=== PATIENT | female | born 1975 | race Caucasian/White ===

== ENCOUNTER 2020-09-04 11:13 | Outpatient (NON) | payer OTHER, SELFPAY ==
[2020-09-05 00:44] LABS: SARS-CoV-2 RNA PCR Negative
== END 2020-09-04 11:14 ==
LOC: ANHCOVIDDT 11:17
PROVIDERS: PCP Physician Assistant; Visit Provider Physician Assistant
DX: R50.9 Fever, unspecified (principal); Z20.828 Contact with and (suspected) exposure to other viral communicable diseases
CPT/HCPCS: 87635; C9803; U0003

== ENCOUNTER 2022-06-23 02:27 | Day surgery (SDC) | payer OTHER, SELFPAY ==
--- NOTE | 2022-03-09 08:21 | SUR.PREOP ---
Patient called today to discuss her prep for her upcoming procedure. Voicemail left and asked that she return call to me or the Dr. Johnson's Office.
--- NOTE | 2022-03-14 08:55 | SUR.PREOP ---
[id number] called Ann-Marie regarding her prep for her upcoming procedure. Message left to return call.
[2022-06-19 16:18] VITALS: BMI 33.5
[2022-06-23 10:30] VITALS: BP 123/76; PULSE 84; RESP 16; TEMP 36.6; O2SAT 100
[2022-06-23] MEDS: LACTATED RINGERS 1,000 ML 150 ML IV CONT (10:40)
[2022-06-23] MEDS: ONDANSETRON INJ 4 MG/2 ML VIAL IV PUSH (10:52)
--- NOTE | 2022-06-23 11:01 | WPDANESEPPF ---
Anes - Initial Pre Proc Eval Procedure: Operation Date: 06/23/22 11:30 Proposed Procedures p Screening Colonoscopy - Handy Johnson MD Date/Time: 06/23/22 11:01 Surgeon: Handy Johnson MD Pre Op Diagnosis: neoplasm screening Patient Data Age: 47 Gender: F Height: 1.73 m Weight: 104.5 kg Last Vital Signs Temp 97.8 F 06/23/22 10:30 Pulse 84 06/23/22 10:30 Resp 16 06/23/22 10:30 BP 123/76 06/23/22 10:30 Pulse Ox 100 06/23/22 10:30 O2 Del Method Room Air 06/23/22 10:30 Allergies Allergy/AdvReac Type Severity Reaction Status Date / Time No Known Allergies Allergy Verified 06/23/22 10:29 Home Medications Medication Instructions Recorded Confirmed Type fluoxetine 20 mg capsule 20 mg PO DAILY 06/19/22 06/23/22 History phentermine 37.5 mg capsule 37.5 mg PO DAILY 06/19/22 06/23/22 History Patient hx anesthesia problems: post op nausea/vomiting Family hx anesthesia problems: none Results Review: All pre-operative results and documents have been reviewed as part of the pre-operative evaluation. COUNT INCLUDES THE [facility] Social History Social History Smoking status: Never smoker Alcohol intake: current Substance use: never Substance use type: does not use Living arrangements: with family Spiritual care concerns: No Anes - Eval Final PreProcedure Day of Procedure 06/23/22 11:01 Patient weight: obese Heart: regular rate and rhythm Lungs: clear to auscultation Airway: Mallampati scale class II Neurological: alert and oriented Last oral intake: >/= 8 hours ASA classification: II Emergent: no Anesthetic plan: proceed Anesthesia type and monitoring: general GIVS and standard monitoring Results Review: All pre-operative results and documents have been reviewed as part of the pre-operative evaluation. Informed Consent: The patient's anesthetic plan and its attendant risks and benefits were discussed with the patient/family/POA. Questions were solicited and answers provided to the satisfaction of the patient/family/POA.
--- NOTE | 2022-06-23 11:05 | PM.HPGS ---
History of Present Illness History of Present Illness Consent: Risks, benefits, and alternatives have been discussed and questions answered. Patient agrees to proceed with procedure. Chief complaint: neoplasm screening Narrative: Ann-Marie Saldaña is a 47 year old female Referred for colon cancer screening. Review of Systems Review of Systems: All systems reviewed & are unremarkable except as noted in HPI and below PMFSH Social History Social History Smoking status: Never smoker Alcohol intake: current Substance use: never Substance use type: does not use Living arrangements: with family Spiritual care concerns: No Meds Home Medications and Allergies Home Medications Medication Instructions Recorded Confirmed Type fluoxetine 20 mg capsule 20 mg PO DAILY 06/19/22 06/23/22 History phentermine 37.5 mg capsule 37.5 mg PO DAILY 06/19/22 06/23/22 History Allergies Allergy/AdvReac Type Severity Reaction Status Date / Time No Known Allergies Allergy Verified 06/23/22 10:29 Vital Signs Vital Signs - 24 hr 06/23/22 10:30 Temperature 36.6 C Pulse Rate 84 Respiratory Rate 16 Blood Pressure 123/76 Pulse Oximetry 100 Oxygen Delivery Room Air Exam Const: General: alert Orientation/consciousness: patient oriented x3 Resp: Auscultation: clear to auscultation bilaterally Cardio: Rhythm: regular rhythm GI: GI Palp: Yes Soft to palpation and No Tenderness to palpation present (GI) Neuro: General: patient oriented x3 Assessment and Plan Assessment and plan (1) Colon cancer screening: Code(s): Z12.11 - Encounter for screening for malignant neoplasm of colon Status: Acute Assessment and Plan: Colonoscopy with possible biopsy or polypectomy or cautery or injection of substances.
[2022-06-23 11:47] VITALS: BP 104/51; PULSE 78; RESP 24; O2SAT 100
[2022-06-23 11:57] VITALS: BP 112/63; PULSE 83; RESP 19; O2SAT 100
[2022-06-23 12:07] VITALS: BP 115/54; PULSE 78; RESP 18; O2SAT 100
== END 2022-06-23 12:15 | disposition home or self-care (01) ==
PROVIDERS: PCP Physician Assistant; Visit Provider Internal Medicine Gastroenterology
PROC: 0DJD8ZZ Inspection of Lower Intestinal Tract, Via Natural or Artificial Opening Endoscopic (ICD-10-PCS; CPT 45378; principal; 2022-06-23 11:30)
DX: Z12.11 Encounter for screening for malignant neoplasm of colon (principal); E66.9 Obesity, unspecified; Z68.35 Body mass index [BMI] 35.0-35.9, adult
CPT/HCPCS: 45378; J2405; J2704; J7120

== ENCOUNTER 2024-02-01 07:45 | Outpatient (CLI) | payer OTHER, SELFPAY ==
--- NOTE | ~2024-02-01 | MR_ITS ---
MRI of the left shoulder Technique: Axial proton-density fat-sat images, coronal proton density fat-sat and T2 fat-sat images, and sagittal T1-weighted and T2 fat-sat images were acquired. Clinical History: Rotator cuff tendon injury Findings: There is minimal AC joint degenerative change. Cortical clavicular, coracoacromial, and cor acohumeral ligaments are intact. Supraspinatus and infraspinatus tendons are intact, without partial or full-thickness tear. There is minimal tendinosis. Subscapularis tendon is intact. Tendon of long head of the biceps is intact. No definite labral tear identified. Inferior glenohumeral ligament is intact. There is mild chondral thinning of the humeral head. No cedrick nt effusion evident. No fluid distention of the subacromial/subdeltoid bursa. No muscle atrophy evide nt. Impression: No rotator cuff or labral tear seen. There is minimal rotator cuff tendinosis. Minimal glenohumeral and AC joint degenerative change. Reviewed, dictated and finalized at [facility]. Impression: No rotator cuff or labral tear seen. There is minimal rotator cuff tendinosis. Minimal glenohumeral and AC joint degenerative change.
--- NOTE | ~2024-02-01 | XR_ITS ---
Left Shoulder Technique: AP and axillary views were obtained. Clinical History: Rotator cuff injury Findings: No fracture or dislocation is seen. Osseous alignment is anatomic. The glenohumeral and acr omioclavicular joint spaces are preserved. Soft tissues are unremarkable. Impression: Unremarkable left shoulder radiographs. Reviewed, dictated and finalized at [facility]. Impression: Unremarkable left shoulder radiographs.
== END 2024-02-01 07:46 ==
LOC: MICIMG 07:47
PROVIDERS: PCP Physician Assistant; Visit Provider Physician Assistant
DX: M25.511 Pain in right shoulder (principal); M25.512 Pain in left shoulder; S46.002A Unspecified injury of muscle(s) and tendon(s) of the rotator cuff of left shoulder, initial encounter; X58.XXXA Exposure to other specified factors, initial encounter
CPT/HCPCS: 73030; 73221

== ENCOUNTER 2024-02-13 10:23 | Outpatient (CLI) | payer OTHER, SELFPAY ==
--- NOTE | ~2024-02-13 | US_ITS ---
Pelvic ultrasound. Clinical History: Abnormal uterine bleeding Technique: Realtime transabdominal and transvaginal scanning of the pelvis was performed. Color flow Doppler and Doppler spectral analysis were performed. Findings: The uterus is anteverted. The endometrial stripe has a thickness of 8 mm. No focal mass is identified. The right ovary measures 2.7 x 1.9 x 2.4 cm. No significant right ovarian or adnexal mass is seen. The left ovary measures 3.2 x 2.7 x 3.4 cm. No significant left ovarian or adnexal mass is seen. There is no evidence of free fluid in the cul de sac. Impression: Unremarkable pelvic ultrasound. Reviewed, dictated and finalized at location . Impression: Unremarkable pelvic ultrasound.
== END 2024-02-13 10:24 ==
LOC: MICIMG 10:25
PROVIDERS: PCP Physician Assistant
DX: N93.9 Abnormal uterine and vaginal bleeding, unspecified (principal)
CPT/HCPCS: 76830; 76856

== ENCOUNTER 2024-12-30 14:33 | Outpatient (CLI) | payer OTHER, SELFPAY ==
--- NOTE | ~2024-12-30 | XR_ITS ---
EXAM/ PROCEDURE: XR knee LT 3V - 12/30/2024 14:36 CDT HISTORY: 49 years old Female with PAIN IN LEFT KNEE COMPARISON: None available TECHNIQUE: Three view(s) FINDINGS/ IMPRESSION: There are no fractures or dislocations.Joint space narrowing, subchondral sclerosis, subchondral cyst formation and osteophyte formation, compatible with mild tricompartmental osteoarthritis. Reviewed, dictated and finalized at location A.
== END 2024-12-30 14:34 | disposition home or self-care (01) ==
LOC: MICIMG 14:33
PROVIDERS: PCP Physician Assistant; Visit Provider Physician Assistant
DX: M25.562 Pain in left knee (principal)
CPT/HCPCS: 73562

== ENCOUNTER 2025-01-05 14:07 | Outpatient (CLI) | payer OTHER, SELFPAY ==
--- NOTE | ~2025-01-05 | US_ITS ---
EXAMINATION: US soft tissue LE LT DATE: 01/05/2025 14:21 INDICATION: Left knee pain TECHNIQUE: Multiple grayscale ultrasound images of the region of concern at the popliteal fossa the l eft knee were obtained. COMPARISON: None FINDINGS: No Siegel's cyst or other abnormal masses or fluid collections identified at the region of concern. Th e popliteal and gastrocnemius arteries and veins appear unremarkable. IMPRESSION: 1. Normal ultrasound of the left popliteal fossa. No Siegel's cyst or other abnormal masses or fluid c ollections. Reviewed, dictated and finalized at location A. IMPRESSION: 1. Normal ultrasound of the left popliteal fossa. No Siegel's cyst or other abno rmal masses or fluid collections.
== END 2025-01-05 14:08 | disposition home or self-care (01) ==
LOC: MICIMG 14:08
PROVIDERS: PCP Physician Assistant; Visit Provider Physician Assistant
DX: M25.562 Pain in left knee (principal)
CPT/HCPCS: 76882